=== PATIENT | female | born 1990 | race Two or more races ===

== ENCOUNTER 2018-12-11 18:15 | Emergency (ER) | payer OTHER ==
[~2018-12-11] VITALS: Ht 152.4 cm; Wt 49.9 kg
== END 2018-12-11 19:16 | disposition home or self-care (01) ==
LOC: ER 18:15
DX: S01.511A Laceration without foreign body of lip, initial encounter (principal); W50.0XXA Accidental hit or strike by another person, initial encounter; Y93.89 Activity, other specified; Y92.89 Other specified places as the place of occurrence of the external cause; Y99.8 Other external cause status